=== PATIENT | female | born 1995 | race African-American/Black ===

== ENCOUNTER 2021-02-12 14:23 | Emergency (ER) | payer OTHER ==
[~2021-02-12] VITALS: Ht 162.6 cm; Wt 113.4 kg
[2021-02-12] MEDS ORDERED: ALBUTEROL0.63 MG/3 (14:46)
[2021-02-12] MEDS ORDERED: SINGULAIR10 MG (14:46)
[2021-02-12] MEDS ORDERED: ADVAIR 100-501 EACH (14:46)
== END 2021-02-12 17:54 | disposition home or self-care (01) ==
LOC: ER 14:23
DX: S80.02XA Contusion of left knee, initial encounter (principal); V00.831A Fall from motorized mobility scooter, initial encounter; Y93.I9 Activity, other involving external motion; Y92.488 Other paved roadways as the place of occurrence of the external cause; Y99.8 Other external cause status